=== PATIENT | female | born 1960 | race Caucasian/White ===

== ENCOUNTER 2019-01-22 05:10 | Observation (INO) ==
[2019-01-22] MEDS ORDERED: ONDANSETRON 4 MG/2 ML VIAL IV ONE ×2 (05:36→17:35)
--- NOTE | 2019-01-22 06:39 | Emergency Department Note ---
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 Notes severe pain there. No other injuries noted - Related Data Home Medications Medication Instructions Recorded Confirmed Prempro 0.3 mg-1.5 mg Tablet 1 tab PO DAILY 01/22/19 01/22/19 Allergies Allergy/AdvReac Type Severity Reaction Status Date / Time No Known Drug Allergies Allergy Unverified 01/22/19 05:16 Review of Systems All systems ED: reviewed and negative except as stated. Past Medical History - Past Medical History Attestation: Yes: The following information was validated with the patient. Medical history: Reports: no medical history Surgical history ED: Reports: orthopedic, other (Right fifth toe) - Social History smoking status: Never smoker Physical Exam Exam of the left knee area shows swelling tenderness over the left anterior knee. No medial or lateral joint line tenderness. Tenderness exacerbated with any movement. Hip and ankle appear fine. Normal posterior tibialis pulse. Limitations: physical limitation Course Vital Signs Temperature 97.3 F 01/22/19 05:11 Pulse Rate 82 01/22/19 05:11 Respiratory Rate 18 01/22/19 05:11 Blood Pressure 160/84 01/22/19 05:11 Pulse Oximetry (%) 96 01/22/19 05:11 Temperature 97.3 F 01/22/19 05:11 Pulse Rate 82 01/22/19 05:11 Respiratory Rate 18 01/22/19 05:11 Blood Pressure 160/84 01/22/19 05:11 Pulse Oximetry (%) 96 01/22/19 05:11 Extremity Injury, Lower - Radiology Data Radiology results reviewed: Yes I reviewed the patient's radiology results. Left knee x-ray shows shattered comminuted patella. Looks like there may also be some contusion of the proximal tibia. Stigmata of severe arthritis including bone cyst and osteophytes. Because of its appearance CT scan is ordered to sort out whether there is tibial injury as well CT scan of the left knee shows as above. 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 Rosendo Curran-he reviewed the imaging and said that patella fracture would require surgical intervention. Requested patient be admitted to observation status to him. I will write holding orders for him. Plan on surgery around 4 or 5 PM. She is allowed to have breakfast but then n.p.o. after 8 a.m. Filled out Workmen's Comp. paperwork Disposition: Xfer As Outpt/Obs ([facility]) Condition: Good Referrals: Ravin Givens MD [Primary Care Provider] - Crescencio Curran MD [Physician] -
[2019-01-22] MEDS: HYDROmorphone 2 MG/ML VIAL IV PRN ×3 (06:55→15:32)
[2019-01-22] MEDS ORDERED: NALOXONE HCL 0.4 MG/ML VIAL IV PRN ×2 (07:24→19:31)
[2019-01-22] MEDS ORDERED: ONDANSETRON 4 MG/2 ML VIAL IV PRN ×2 (07:24→19:31)
--- NOTE | 2019-01-22 08:22 | XRay Report ---
HISTORY: Fell on ice FINDINGS: There is an acute comminuted fracture of the patella. The superior portion is retracted superiorly and rotated. Associated with this is a moderate size joint effusion. No other fracture is present. Patient has underlying mild osteoarthritis with spurs along the margins of the medial and lateral tibial plateaus and medial femoral condyle. Medial joint compartment between the femur and tibia is mildly narrowed. IMPRESSION: Fractured left patella Interpreted and Authenticated by: Mt Watson 01/22/19
[2019-01-22 08:24] LABS: Basophils # (Auto) 0 K/mcL (0.0-0.3); Basophils % (Auto) 0.4 % (0.0-2.0); Eosinophils # (Auto) 0 K/mcL (0.0-0.7); Eosinophils % (Auto) 0.5 % (0.0-7.0); Granulocytes % (Auto) 78.4 % (38.0-78.0); Lymphocytes # (Auto) 0.8 K/mcL (1.5-4.8); Lymphocytes % (Auto) 16.5 % (15.5-49.0); Mean Cell Volume 94.3 fL (80.0-100.0); Mean Corpuscular HGB Conc 33.4 g/dL (31.0-36.0); Monocytes # (Auto) 0.2 K/mcL (0.1-0.9); Monocytes % (Auto) 4.2 % (1.0-12.0); Platelet Count 214 K/mcL (140-440); RBC 4.48 M/mcL (4.00-5.20); Red Cell Distribution Width 12.6 % (11.5-14.5)
--- NOTE | 2019-01-22 08:26 | Cat Scan Report ---
History: Fell on ice with the fractured patella TECHNIQUE: The left knee was imaged in axial plane without contrast. Sagittal and coronal reformats were created. The radiation exposure was limited using dose reduction technology. FINDINGS: There is an acute severely comminuted fracture of the patella. The superior fragment is retracted approximately 1.1 cm. On the axial view the lateral component is angulated laterally and up to 1.2 cm. There is a moderate size hematoma anterior to the patella. Within the joint space there is a moderate size joint effusion. There is no fracture of the femur, tibia or fibula. Patient has underlying osteoarthritis. There are spurs at the patellofemoral joint. Severe joint space narrowing is present between the medial femoral condyle and medial tibial plateau. Associated with this are small to intermediate sized marginal spurs. There are smaller spurs around the lateral joint compartment. Lateral joint compartment is normal in width and alignment. Incidentally noted are multiple varicose veins around the knee. IMPRESSION: Acute severely comminuted fracture of the patella with a prepatellar hematoma and a moderate size joint effusion Advanced osteoarthritis in the medial joint space Interpreted and Authenticated by: Mt Watson 01/22/19
--- NOTE | 2019-01-22 08:28 | XRay Report ---
HISTORY: Preop for knee surgery FINDINGS: The lungs are clear and well expanded. The heart size and pulmonary vasculature are normal. There is no pleural effusion. Mediastinum and naomi are normal. There is a mild dextroscoliotic curvature in the lower thoracic spine with compensatory mild levoscoliosis in the upper thoracic spine. There has been a small increase in the heart size since 2007. IMPRESSION: No acute abnormality Interpreted and Authenticated by: Mt Watson 01/22/19
[2019-01-22 08:30] LABS: Appearance,Urine HAZY; Bacteria,Urine 0 /hpf (0); Bilirubin,Urine NEG (NEG); Color,Urine YELLOW; Glucose,Urine (UA) NEGATIVE (NEG); Leukocyte Esterase,Urine NEG /uL (NEG); Mucus,Urine FEW /hpf (0); Protein,Urine NEG (NEG); Urine Blood 0.03 mg/dL (<0.03); Urine RBC 2 /hpf (0-1); Urine Squamous Epithelial Cell 6 /hpf (0-4); Urine WBC 2 /hpf (0-4); Urobilinogen,Urine NEG (NEG)
[2019-01-22 08:45] LABS: ALT/SGPT 20 U/l (0-40); Albumin 4.4 gm/dL (3.2-5.2); Albumin/Globulin Ratio 1.6 (1.0-2.3); Alkaline Phosphatase 68 U/L (39-117); Blood Urea Nitrogen 14 mg/dl (6-20)
[2019-01-22] MEDS: 0.9 % SODIUM CHLORIDE 1,000 ML IV SCH ×2 (10:04→20:12)
--- NOTE | 2019-01-22 17:27 | Orthopedic History & Physical ---
History of Present Illness Patient information: Note initiated : 01/22/19 at 5:25 pm Service Date, if different from initiated Date: [] Patient: Sydnie Gordon a 58 y/o F admitted on 01/22/19 for Fell On Ice, Lt Knee Pain. Chief Complaint: [left patella fracture] HPI: Ms. 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 She fell directly on the knee and was not able to ambulate afterward. She was transported to the ED for evaluation where x-rays and a CT scan found a comminuted left patella fracture. The patient has no pain elsewhere in her body and denies hitting her head. She also denies numbness and tingling. She has no significant PMH and her PSH is significant for a small toe surgery. She denies any allergies and lives in [place] with her Crescencio. Review of Systems All systems PM: reviewed and no additional remarkable complaints except as stated (as documented in HPI) Medications and Allergies Home Medications Medication Instructions Recorded Confirmed Type Prempro 0.3 mg-1.5 mg Tablet 1 tab PO DAILY 01/22/19 01/22/19 History Allergies Allergy/AdvReac Type Severity Reaction Status Date / Time No Known Drug Allergies Allergy Unverified 01/22/19 05:16 Physical Examination - Knee left Appearance: ecchymosis, effusion, other (laterally tilted patella) Tenderness with palpation: none, anterior Pain: with flexion, with extension, throughout ROM, at limits of motion, other Gait: other (nonambulatory) Results - Labs Result Diagrams: 01/22/19 07:43 01/22/19 07:43 Labs: Abnormal lab results 01/22/19 01/22/19 Range/Units 07:43 08:04 Gran % 78.4 H (38.0-78.0) % Lymph # (Auto) 0.8 L (1.5-4.8) K/mcL Urine Occult Blood 0.03 A (<0.03) mg/dL Urine RBC 2 H (0-1) /hpf Ur Squamous Epith Cells 6 H (0-4) /hpf H & H 01/22/19 Range/Units 07:43 Hgb 14.1 (12.0-15.0) g/dL Hct 42.2 (36.0-48.0) % Coagulation 01/22/19 Range/Units 07:43 INR 0.9 (0.9-1.1) All other labs normal. - Diagnostic results Knee CT: image reviewed (comminuted left patella fracture. minimal tibiofemoral osteoarthritis) Assessment and Plan (1) Patellar fracture Comminuted left patella fracture: After reviewing the imaging with Dr. Curran, an open reduction internal fixation is recommended for optimal orthopedic outcomes. The patellar function is disabled with the current fracture pattern. We had a lengthy discussion with the patient regarding the recommended procedure including the risks and benefits including but not limited to the risk of infection, risk for need for repeat surgery, nonunion, decreased range of motion and risks associated with anesthesia. The patient understands these risks and wishes to proceed with surgery. Surgery will be a left open reduction internal fixation of the left patella today with Dr. Curran. She will be placed into an immobilizer and follow up in two weeks in the office for post operative care. Patient understands and agrees with this plan. Status: Acute Qualifiers: Encounter type: initial encounter Fracture type: closed Fracture morphology: comminuted Fracture alignment: displaced Laterality: left Qualified Code(s): S82.042A - Displaced comminuted fracture of left patella, initial encounter for closed fracture Exam Vital signs: Temp Pulse Resp BP Pulse Ox 100.4 F H 78 16 146/74 96 01/22/19 15:20 01/22/19 15:20 01/22/19 15:20 01/22/19 15:20 01/22/19 15:20 Constitutional: well developed, well nourished, no acute distress Head: normocephalic, atraumatic Neck: trachea midline Respiratory: clear to auscultation bilaterally Cardiovascular: regular rate & rhythm with no murmurs, rubs or gallops Musculoskeletal: other (DP/PT pulses 2+. capillary refill < 3 seconds)
[2019-01-22] MEDS ORDERED: ceFAZolin 1 GM VIAL IV SCH ×2 (17:30→17:45)
[2019-01-22] MEDS ORDERED: METOCLOPRAMIDE 10 MG/2 ML VIAL IV ONE (17:35)
[2019-01-22] MEDS ORDERED: MIDAZOLAM 5 MG/5 ML VIAL IV ONE (17:35)
[2019-01-22] MEDS ORDERED: LIDOCAINE HCL/PF 100 MG/5 ML SYRINGE IV ONE (17:35)
[2019-01-22] MEDS ORDERED: ROPIVACAINE HCL/PF 20 ML VIAL IJ ONE (17:35)
[2019-01-22] MEDS ORDERED: GLYCOPYRROLATE 0.2 MG/ML VIAL IV ONE (17:35)
[2019-01-22] MEDS ORDERED: FAMOTIDINE/PF 20 MG/2 ML VIAL IV ONE (17:35)
[2019-01-22] MEDS ORDERED: PROPOFOL 200 MG/20 ML VIAL IV ONE (17:35)
[2019-01-22] MEDS ORDERED: TRANEXAMIC ACID 1,000 MG/10 ML VIAL IV ONE ×3 (17:35→19:40)
[2019-01-22] MEDS ORDERED: DEXAMETHASONE 10 MG/ML VIAL IV ONE (17:35)
[2019-01-22] MEDS ORDERED: KETAMINE 100 MG/ML ML IV ONE (17:35)
[2019-01-22] MEDS ORDERED: PHENYLEPHRINE 10 MG/ML VIAL IV ONE (17:35)
--- NOTE | 2019-01-22 19:06 | Brief Operative Note ---
Pre-op diagnosis: left patella comminuted fracture Post-op diagnosis: same Procedure: ORIF left comminuted patella fracture Grafts/Implants: Yes Anesthesia: GETA Complications: none Surgeon: Crescencio Curran [employer]: Patria Silver Estimated blood loss (cc): 100 Tourniquet Time (Minutes): 49 Specimens Removed/Pathology: none sent Condition: stable Disposition: PACU
[2019-01-22] MEDS ORDERED: ONDANSETRON 4 MG ODT TABLET SL PRN (19:08)
[2019-01-22] MEDS ORDERED: HYDROcodone/APAP 10/325MG TABLET PO PRN (19:08)
--- NOTE | 2019-01-22 19:08 | Discharge Summary ---
Ortho Discharge Plan - General - Patient Instructions Diet: Regular Diet Activity: non weight bearing (keep knee immobilizer on at all times except hygeine) Dressing Care: May shower in 2 days - Follow Up Plan Follow Up Appointments: Crescencio Curran MD [Physician] - Ravin Givens MD [Primary Care Provider] - Disposition: Home, Self-Care Prognosis: Good Rehab Potential: Good I certify that the patient requires SNF services: No Overall status at discharge: patient is progressing back to baseline
[2019-01-22] MEDS ORDERED: LACTATED RINGERS 1,000 ML IV SCH ×2 (19:15→19:45)
[2019-01-22] MEDS ORDERED: KETOROLAC 30 MG/ML VIAL IV PRN (19:31)
[2019-01-22] MEDS ORDERED: ACETAMINOPHEN 1,000 MG/100 ML BOTTLE IV ONE (19:31)
[2019-01-22] MEDS ORDERED: METHOCARBAMOL 1,000 MG/10 ML VIAL IV PRN (19:31)
[2019-01-22] MEDS ORDERED: IPRATROPIUM/ALBUTEROL 3 ML AMPUL.NEB NEB PRN (19:31)
[2019-01-22] MEDS ORDERED: LACTATED RINGERS 250 ML IV PRN (19:31)
[2019-01-22] MEDS ORDERED: MEPERIDINE 25 MG/ML SYRINGE IV PRN (19:31)
[2019-01-22] MEDS ORDERED: HYDROmorphone 2 MG/ML VIAL IV PRN (19:31)
[2019-01-22] MEDS ORDERED: FLUMAZENIL 0.1 MG/ML ML IV PRN (19:31)
[2019-01-22] MEDS ORDERED: fentaNYL 100 MCG/2 ML VIAL IV PRN (19:31)
[2019-01-22] MEDS ORDERED: BENZOCAINE/MENTHOL 1 LOZENGE PO PRN (19:31)
[2019-01-22] MEDS: ceFAZolin 1 GM VIAL IV SCH (23:53)
[2019-01-22] MEDS: 0.9 % SODIUM CHLORIDE 10 ML SYRINGE IV SCH (23:54)
[2019-01-23] MEDS: ONDANSETRON 4 MG/2 ML VIAL IV PRN ×2 (00:18→07:56)
--- NOTE | 2019-01-23 07:00 | Orthopedic Progress Note ---
Subjective Patient information: Note initiated : 01/23/19 at 6:58 am Service Date, if different from initiated Date: [] Patient: Sydnie Gordon 58 y/o F admitted on 01/22/19 for Fell On Ice, Lt Knee Pain. Chief Complaint: [POD #1 s/p ORIF left patella Patient reports minimal pain this morning. Denies CP, SOB, numbness, tingling or calf pain. She has no questions or concerns.] Objective Vital signs: Vital Signs Temp Pulse Pulse Resp BP BP Pulse Ox 01/23/19 03:13 98.5 F 72 14 128/70 96 01/22/19 23:06 97.8 F 85 16 123/72 99 01/22/19 22:06 71 120/67 99 01/22/19 21:36 74 117/69 99 01/22/19 21:06 77 125/66 98 01/22/19 20:51 82 136/71 98 01/22/19 20:36 91 H 134/67 94 01/22/19 20:21 82 152/76 93 01/22/19 20:06 97.6 F 87 14 158/81 93 01/22/19 20:00 98.6 F 89 17 149/81 97 01/22/19 19:50 98.1 F 93 H 19 157/91 97 01/22/19 19:35 99.6 F H 81 12 111/57 99 01/22/19 19:30 88 10 L 118/57 99 01/22/19 19:25 78 9 L 118/49 98 01/22/19 19:20 76 16 88/41 99 01/22/19 19:19 99.7 F H 78 14 86/33 97 01/22/19 15:20 100.4 F H 78 16 146/74 96 01/22/19 11:18 99.1 F H 73 16 105/63 97 01/22/19 09:30 98.9 F 70 16 124/74 98 01/22/19 08:45 137/83 01/22/19 08:31 130/71 01/22/19 08:16 146/85 01/22/19 08:01 146/94 01/22/19 07:51 163/78 Intake and Output 01/22/19 01/23/19 01/23/19 21:59 05:59 13:59 Intake Total 1800 0 Output Total 50 800 Balance 1750 -800 Intake: Oral 0 IV - Manual Only 1800 Output: Void Amount 800 Estimated Blood Loss 50 Other: Urine Appearance Clear Urine Color Bright Yellow Urine Odor Strong # Voids 1 Intake & Output: Intake & Output 01/22/19 01/23/19 01/23/19 21:59 05:59 13:59 Intake Total 1800 0 Output Total 50 800 Balance 1750 -800 Intake: Oral 0 IV - Manual Only 1800 Output: Void Amount 800 Estimated Blood Loss 50 Other: Urine Appearance Clear Urine Color Bright Yellow Urine Odor Strong # Voids 1 Incision: Yes healing, No draining, No red, No swollen, No inflamed, Yes clean and dry Incision clean and dry: Yes Dressing: Yes clean, Yes dry, Yes intact, Yes splint in place Weight bearing status: non Range of motion: full foot and ankle Neurological exam IM: Yes alert, Yes oriented X3, Yes motor sensory intact, Yes neurovascular intact Extremities exam IM: Yes normal capillary refill, Yes Foot pink and warm, Yes neurovascular intact - Periperhal Pulses Peripheral pulses: 2+: dorsalis pedis (L), dorsalis pedis (R), posterior tibialis (L), posterior tibialis (R) - Diagnostic Results Knee x-ray: image reviewed (ORIF left patella in good alignment) - Labs CBC & BMP: 01/22/19 07:43 01/22/19 07:43 Labs: Orthopedic Labs 01/22/19 07:43 PT 12.5 INR 0.9 01/22/19 07:43 Hgb 14.1 Hct 42.2 Assessment and Plan (1) Patellar fracture POD #1 s/p ORIF left patella: -NWB, has walker at home -pain control -ASA 325mg once daily for 1 month- DVT prophylaxis -staple protocol -march shower day #2 -f/u in office 10-14 days Status: Acute Qualifiers: Encounter type: initial encounter Fracture type: closed Fracture morphology: comminuted Fracture alignment: displaced Laterality: left Qualified Code(s): S82.042A - Displaced comminuted fracture of left patella, initial encounter for closed fracture
--- NOTE | 2019-01-23 07:08 | Operative Note ---
DATE OF OPERATION: 01/22/2019 PREOPERATIVE DIAGNOSIS: Left comminuted patella fracture. POSTOPERATIVE DIAGNOSIS: Left comminuted patella fracture. PROCEDURE PERFORMED: Open reduction and internal fixation of left comminuted patella fracture. SURGEON: Rosendo Curran MD SENIOR PROGRAMMER: Patria Silver PA-C ANESTHESIA: General. FINDINGS: Comminuted multifragmentary patella fracture in seven pieces. INDICATIONS: The patient is a 58-year-old female. She was working at [employer]; she slipped this morning on the ice and landed directly onto her kneecap. CT scan and x-rays were performed, which demonstrated a highly comminuted displaced patella fracture. We talked about different options and we felt that surgical intervention would be the best option. The risks and benefits were discussed with the patient in detail including, but not limited to, the risks of anesthesia, problems with the heart or lungs related to anesthesia, infection, compromise or injury to the nerves and blood vessels, deep venous thrombosis, pulmonary embolism, pneumonia, continued pain after surgery, worsening pain or symptoms after surgery, swelling, loss of motion, need for repeat surgery, hardware failure, re-tear or failure of repair site, malunion, nonunion, and hardware pain requiring future removal. OPERATION IN DETAIL: The patient was seen preoperatively where site and side were properly identified and marked, and all questions were answered. She was then transferred to the operating room and given 2 grams Ancef and general anesthesia was administered without complication. Tourniquet was placed on the left upper thigh. She was prepped and draped in the usual sterile fashion from the toes up to the tourniquet. Esmarch bandage was used to exsanguinate the limb and the tourniquet was inflated to 300 mmHg. A standard midline incision was created to the anterior knee and patella. The incision was carried down through the skin and subcutaneous tissue and bone windows created medially and laterally. The patella was immediately exposed. A large hematoma was evacuated. We thoroughly irrigated with jet lavage and saline. There were about seven large fragments. I started building from the inferior pole and placed multiple 0.062 K-wires across from one piece to the next. I did a medial parapatellar arthrotomy so I could feel the articular margin and make sure we anatomically reduced it from distal to proximal. We placed about four transverse wires. I then placed two anterior to proximal to distal wires. Once I was satisfied with anatomic reduction, I used an 18-gauge wire and with this we did a [id number] wiring. I then tensioned this down with two separate knots, securing the fracture anatomically. I placed a second wire along the periphery and again tensioned this at two different knots with a peripheral fixation of the bone. Once this was done, we took the knee through range of motion. There was excellent stability and tension of the fracture site and I felt the articular surface, which was anatomically reduced. We again thoroughly irrigated. We then closed the medial parapatellar arthrotomy with #2 Stratafix. The small incision we created in the quadriceps and patella tendon were closed with 0 Vicryl and the subcutaneous layer was closed in layers with 3-0 Vicryl, 2-0 Monocryl and with candido. She was dressed with Xeroform, 4x4s, ABD and an D[place] bandage. She was placed in a knee ranger, locked in extension. She was then extubated, transferred to a stretcher and taken to PACU in stable condition. SPECIMENS: None. COMPLICATIONS: None. DRAINS: None. DISPOSITION: To PACU in stable condition. DEBBIE:pk Job ID: [id number] Doc ID: [id number] Terrie Curran MD
[2019-01-23] MEDS: 0.9 % SODIUM CHLORIDE 10 ML SYRINGE IV SCH (07:45)
[2019-01-23] MEDS: ceFAZolin 1 GM VIAL IV SCH (07:55)
== END 2019-01-23 09:45 | disposition home or self-care (01) ==
LOC: MEDSUR 05:10 → ED 05:10 → MEDSUR 09:00
PROVIDERS: ADMIT Orthopaedic Surgery Sports Medicine; ATTEND Orthopaedic Surgery Sports Medicine